=== PATIENT | female | born 1945 | race Caucasian/White ===

== ENCOUNTER → 2017-11-07 | Outpatient (CLI) | payer MEDICARE ==
[~2017-11-07] MED LIST: ASPI81TA40 PO; ATOR40TA69 PO; CHOL200074 PO; CITA-106 PO; CLOP75TA32 PO; DICY20TA11 PO; FEXO-23 PO; FLUTI; FLUTICASONE EN; ISOSORB MONO PO; ISOVUE-370 50ML VIAL IV ONE; LEVO50TA11 PO; METO-391 PO; NITR0.4T SL; OMEP20CA10 PO; OXYB5TAB10 PO; PARO-66 PO; ROPINROLE PO; TRAMADOL PO; UBID1CAP61 PO; VITA1CAP PO; VOLTAREN GEL TP; WHEA1POW2 PO
== END | disposition home or self-care (01) ==
LOC: RAH 12:36
PROVIDERS: ATTEND Internal Medicine
DX: R22.1 Localized swelling, mass and lump, neck (principal); M47.892 Other spondylosis, cervical region
CPT/HCPCS: 70492; Q9967

== ENCOUNTER → 2017-11-28 | Outpatient (CLI) | payer MEDICARE ==
[~2017-11-28] MED LIST changes: +FENTANYL CITRATE PF 50 MCG/1 ML 2ML VIAL ONE; -ISOVUE-370 50ML VIAL IV ONE; +MIDAZOLAM HCL 1 MG/ML 2ML VIAL ONE
[2017-11-28 09:29] LABS: PARTIAL THROMBOPLASTIN TIME 27.2 SEC (26.3-35.5)
[2017-11-28 09:50] LABS: INR 0.95 (0.85-1.15)
== END | disposition home or self-care (01) ==
LOC: RAH 07:53
PROVIDERS: ATTEND Otolaryngology Plastic Surgery within the Head & Neck
DX: I88.8 Other nonspecific lymphadenitis (principal); Z98.51 Tubal ligation status; Z95.9 Presence of cardiac and vascular implant and graft, unspecified; I10 Essential (primary) hypertension; E03.9 Hypothyroidism, unspecified; F32.9 Major depressive disorder, single episode, unspecified; Z98.890 Other specified postprocedural states; M19.90 Unspecified osteoarthritis, unspecified site; R49.8 Other voice and resonance disorders; Z79.02 Long term (current) use of antithrombotics/antiplatelets; Z96.659 Presence of unspecified artificial knee joint; I25.2 Old myocardial infarction; Z86.2 Personal history of diseases of the blood and blood-forming organs and certain disorders involving the immune mechanism
CPT/HCPCS: 10022; 36415; 38505; 76942; 85610; 85730; 88173; 88305; 88312; J2250; J3010

== ENCOUNTER 2017-12-09 07:32 | Day surgery (SDC) | payer MEDICARE ==
[~2017-12-09] VITALS: Ht 165.1 cm; Wt 79.6 kg
[~2017-12-09 07:32] MED LIST changes: -DICY20TA11 PO; -FENTANYL CITRATE PF 50 MCG/1 ML 2ML VIAL ONE; -MIDAZOLAM HCL 1 MG/ML 2ML VIAL ONE; -PARO-66 PO; +SODIUM CHLORIDE 0.9% 1000ML 1,000 ML IV ONE
[2017-12-09 08:00] VITALS: BP 110/62
[2017-12-09] MEDS ORDERED: PARO-66 PO (08:43)
[2017-12-09] MEDS ORDERED: DICY20TA11 PO (08:43)
[2017-12-09] MEDS ORDERED: PROPOFOL 10 MG/ML 20ML VIAL IV ONE (09:15)
[2017-12-09] MEDS ORDERED: SIMETHICONE 40 MG/0.6 ML ML ONE (09:20)
[2017-12-09 09:28] VITALS: BP 100/42
== END 2017-12-09 10:11 | disposition home or self-care (01) ==
LOC: DAH 07:32
PROVIDERS: ATTEND Internal Medicine Gastroenterology
DX: K29.50 Unspecified chronic gastritis without bleeding (principal); I10 Essential (primary) hypertension; I25.10 Atherosclerotic heart disease of native coronary artery without angina pectoris; F32.9 Major depressive disorder, single episode, unspecified; E78.5 Hyperlipidemia, unspecified; E03.9 Hypothyroidism, unspecified; M19.90 Unspecified osteoarthritis, unspecified site; Z95.5 Presence of coronary angioplasty implant and graft; Z90.49 Acquired absence of other specified parts of digestive tract; Z98.890 Other specified postprocedural states
CPT/HCPCS: 43239; 88305; 88312; 88342; 93005; A4606; J2704; J7030

== ENCOUNTER → 2018-01-03 | Outpatient (CLI) | payer MEDICARE ==
[~2018-01-03] MED LIST changes: -CITA-106 PO; +DICY20TA11 PO; -FLUTI; -OMEP20CA10 PO; -OXYB5TAB10 PO; +PARO-66 PO; -SODIUM CHLORIDE 0.9% 1000ML 1,000 ML IV ONE; -VITA1CAP PO
[2018-01-03 13:40] LABS: CREATININE 0.8 mg/dL (0.5-1.5)
== END ==
LOC: LAB 12:30
PROVIDERS: ATTEND Internal Medicine Gastroenterology
DX: K57.92 Diverticulitis of intestine, part unspecified, without perforation or abscess without bleeding (principal)
CPT/HCPCS: 36415; 82565; 84520

== ENCOUNTER → 2018-01-04 | Outpatient (CLI) | payer MEDICARE ==
[~2018-01-04] MED LIST changes: +IOPAMIDOL-370 100 ML VIAL IV ONE
== END | disposition home or self-care (01) ==
LOC: OIH 09:35
PROVIDERS: ATTEND Internal Medicine Gastroenterology
DX: K57.30 Diverticulosis of large intestine without perforation or abscess without bleeding (principal); K57.92 Diverticulitis of intestine, part unspecified, without perforation or abscess without bleeding
CPT/HCPCS: 74178; Q9967